=== PATIENT | male | born 1945 | race Caucasian/White ===

== ENCOUNTER 2019-04-13 09:30 | Outpatient (RCR) | payer MEDICARE, OTHER, SELFPAY ==
[2019-03-18 09:27] VITALS: BP 126/92; PULSE 91; RESP 20; TEMP 36.8; BMI 45.9
--- NOTE | 2019-03-18 09:39 | WC ---
PT STATES HE TAKES MULT MEDS, CAN'T REMEMBER NAMES OR DOSES. WILL BRING LIST AT NEXT VISIT.
--- NOTE | 2019-03-18 11:03 | PCM.WC.HP ---
(1) Stasis dermatitis of both legs Status: Acute Current Visit: Yes Code(s): I87.2 - Venous insufficiency (chronic) (peripheral) (2) Peripheral vascular occlusive disease Status: Acute Current Visit: Yes Code(s): I73.9 - Peripheral vascular disease, unspecified (3) Edema of both lower extremities due to peripheral venous insufficiency Status: Acute Current Visit: Yes Code(s): I87.2 - Venous insufficiency (chronic) (peripheral) (4) Atrial fibrillation and flutter Status: Acute Current Visit: Yes Code(s): I48.91 - Unspecified atrial fibrillation; I48.92 - Unspecified atrial flutter (5) Hx of penitentiary use of blood thinners Status: Acute Current Visit: Yes Code(s): Z92.29 - Personal history of other drug therapy (6) Obesity (BMI 30-39.9) Status: Acute Current Visit: Yes Code(s): E66.9 - Obesity, unspecified History of Present Illness Date of Service: 03/18/19 Chief Complaint: Follow-up on right lower leg round open ulcer History of Wound: 73-year-old white male obese with a history of ablation done to his right leg the right leg that has the punctuated ulcer. Patient has stasis dermatitis. States he is never smoked and never drank has been in the [employer] for over 30 years. 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 He has history of edema and water retention abdomen and face history of A. fib and is on Eliquis for this Past Medical History Past Medical History: A. fib stasis dermatitis peripheral vascular disease lower leg edema peripheral arterial occlusive disease Allergies/Adverse Reactions: Allergies Penicillins [PCN] Allergy (Verified 03/18/19 09:39) Other POLLEN Allergy (Uncoded 03/18/19 09:39) Other Lives: With Family Smoking Status: Never smoker Tobacco Use: Non-smoker Alcohol: None Drugs: None Review of Systems Constitutional: Denies: Chills, Fever Eyes: Denies: Blurred vision, Drainage, Pain HEENT: Denies: Difficulty Hearing, Difficulty Swallowing, Sore Throat, Visual Changes Cardiovascular: Denies: Chest Pain, Palpitations, Syncope Respiratory: Denies: Cough, Shortness of Breath Gastrointestinal: Denies: Abdominal Pain, Nausea, Vomiting Genitourinary: Denies: Dysuria, Frequency Musculoskeletal: Denies: Joint Pain, Muscle pain Skin: Denies: Jaundice, Rash Neurological: Denies: Balance problems, Change in Speech, Difficulty swallowing, Focal weakness Psychiatric: Denies: Anxiety, Depression Endocrine: Denies: Change in Body Habitus Hematologic/ Lymphatic: Denies: Adenopathy - Physical Exam Vital Signs Temp Pulse Resp BP 98.2 F 91 20 H 126/92 H 03/18/19 09:27 03/18/19 09:27 03/18/19 09:27 03/18/19 09:27 General: Oriented x3, Cooperative, Well developed HEENT: Atraumatic, PERRLA Oral: Moist Mucosa Neck: Supple, No JVD Lungs: Clear to auscultation, Normal air movement Cardiovascular: Regular rate, Regular Rhythm Abdomen: Bowel Sounds Present, Soft, Non Tender, No Hepato-splenomegaly Extremities: No clubbing, Diminished Peripheral Pulses, Edema Skin: Ulcer/ Wound - Punctuated ulcer left lower medial ankle, Rash Present Wound Measurements and Assessment WC - Nurse 1 - General Ulcer Measurement Start: 03/18/19 09:27 Freq: Status: Active Protocol: Activity Type Activity Date Activity User E-Sign Co-Sign Detail Recorded Client Recorded Date Recorded By Document 03/18/19 09:27 [facility] [id number] 03/18/19 09:36 [facility] 03/18/19 09:27 Wound Center Nurse 1 [Ulcer Assessment] #1- R LAT FUENTES -Combined with other wound No -Current Size (cm) - Length 1.1 -Current Size (cm) - Width 1 -Current Size (cm) - Depth 0.2 -Total Square Cm 1.1 -Date of Last Picture (Recall this 03/18/19 field) -Photo Taken Yes -Epithelialization None Present -Tunneling No -Undermining/Tunneling No -Circular Undermining No -Exudate Amt Small -Exudate Type Serous -Wound Margin Distinct, Outline Attached -Granulation Amt Medium (34-66%) -Granulation Quality Red -Slough/Fibrin Yes -Necrosis Amt Medium (34-66%) -Necrotic Tissue Type Adherent Slough -Texture (Torri-wound Skin Appearance) Assessed, Scarring -Moisture (Torri-wound Skin Appearance Assessed ) -Color (Torri-wound Skin Appearance) Hemosiderin Staining -Temperature (Torri-wound Skin No Abnormality Appearance) (Pt Warm) -Tenderness on Palpation (Torri-wound No Skin Appearance) -Ulcer Cleansing Rinsed/ Irrigated with Saline -Foul Odor after Cleansing No -Anesthetic Used 5% Lidocaine Gel [Edema Assessment] -Lower Limb Edema Present Yes -Right Calf (cm) 47.5 -Right Ankle (cm) 27.5 -Left Calf (cm) 46.7 -Left Ankle (cm) 28.5 WC - Nurse 2 - General Ulcer CM Notes Start: 03/18/19 09:27 Freq: Status: Active Protocol: Activity Type Activity Date Activity User E-Sign Co-Sign Detail Recorded Client Recorded Date Recorded By Document 03/18/19 09:50 MW [id number] 03/18/19 09:58 MW 03/18/19 09:50 Wound Center Nurse 2 [Procedure/Treatment] #1- R LAT FUENTES -Time 09:55 -Correct Patient Yes -Correct Side, Site, Position Yes -Correct Procedure Yes -Procedure Performed Yes -Type of Procedure Debridement -Clinical Debridement Subcutaneous -Post Debridement Size (cm) - Length 1.2 -Post Debridement Size (cm) - Width 1.2 -Post Debridement Size (cm) - Depth 0.2 -Total Square Cm 1.44 -Wound/Ulcer Outcome Not Healed -Ulcer Cleansing Rinsed/ Irrigated with Saline -Foul Odor after Cleansing No -Bioengineered Tissue No -Bleeding Controlled with Pressure -Offloading No -Treatment Response Procedure Tolerated Well [See Physician Procedure note for Specifics] Pain Scale: 0-10 Numeric [Pain] -Is Patient Pain Free? Yes Musculoskeletal: No Tenderness to Palpation of Joints or Extremities Lymphatic: No Cervical, Supraclavicular, or Inguinal Adenopathy Neurological: Cranial nerves II-XII grossly intact, Neuro grossly intact Psych/Mental Status: Normal Affect, Appropriate Debridement Note Post-Debridement Measurements/Treatment WC - Nurse 2 - General Ulcer CM Notes Start: 03/18/19 09:27 Freq: Status: Active Protocol: Activity Type Activity Date Activity User E-Sign Co-Sign Detail Recorded Client Recorded Date Recorded By Document 03/18/19 09:50 MW [id number] 03/18/19 09:58 MW 03/18/19 09:50 Wound Center Nurse 2 #1- R LAT FUENTES -Time 09:55 -Correct Patient Yes -Correct Side, Site, Position Yes -Correct Procedure Yes -Procedure Performed Yes -Type of Procedure Debridement -Clinical Debridement Subcutaneous -Post Debridement Size (cm) - Length 1.2 -Post Debridement Size (cm) - Width 1.2 -Post Debridement Size (cm) - Depth 0.2 -Total Square Cm 1.44 -Wound/Ulcer Outcome Not Healed -Ulcer Cleansing Rinsed/ Irrigated with Saline -Foul Odor after Cleansing No -Bioengineered Tissue No -Bleeding Controlled with Pressure -Offloading No -Treatment Response Procedure Tolerated Well Pain Scale: 0-10 Numeric Is Patient Pain Free? Yes Wound debrided: Ulcer left medial ankle Type of Debridement: Excisional debridement Anesthesia Used: 5% Lidocaine Gel Depth: Down to and including healthy tissue, in the subcutaneous layer Percentage of wound debrided: 100 Instrument Used: 5mm curette Tissue Removed: Slough and fibrin Severity: Fat Layer Exposed Amount of bleeding with debridement: Mild Bleeding Controlled with: Compression and gauze Patient tolerated procedure well Assessment/Plan Cultures obtained for anaerobic and aerobic bacteria Active Problems Stasis dermatitis of both legs (Acute) Peripheral vascular occlusive disease (Acute) Edema of both lower extremities due to peripheral venous insufficiency (Acute) Atrial fibrillation and flutter (Acute) Hx of penitentiary use of blood thinners (Acute) Obesity (BMI 30-39.9) (Acute) Assessment: Peripheral vascular occlusive disease. Nonhealing ulcer right medial fuentes. Atrial fib. Edema lower extremities. Morbid obesity Plan: Wash leg with antibacterial soap. Apply Aquacel silver to the wound bed base. Cover with Adaptic and dressing. Double layer Tubigrip's to bilateral lower legs. Follow-up in 1 week. Will call with culture results
--- NOTE | 2019-03-25 07:46 | VDLE_ITS ---
Reason For Study: BLE Edema RIGHT LEFT CFV is compressible, spontaneous, phasic, CFV is compressible, spontaneous, phasic, competent and demonstrates normal competent, and demonstrates normal augmentation. augmentation. FV is compressible, spontaneous, phasic, FV is compressible, spontaneous, phasic, competent and demonstrates normal competent and demonstrates normal augmentation. augmentation. POP V is compressible, spontaneous, phasic, POP V is compressible, spontaneous, phasic, competent and demonstrates normal competent and demonstrates normal augmentation. augmentation. T/P Trunk is compressible. T/P Trunk is compressible. PTV is compressible. PTV is compressible. RT PerV is compressible. LT PerV is compressible. SFJ is competent and measures 0.76 x 0.76 cm. SFJ is competent and measures 1.07 x 1.10 cm. Right GSV was previously ablated from groin Left GSV was previously ablated. to mid calf. SSV at junction is competent and measures GSV mid calf is INCOMPETENT for greater than 0.29 x 0.31 cm. 0.5 seconds and measures 0.27 x 0.28 cm. ASV mid calf is INCOMPETENT for greater than 0.5 seconds and measures 0.32 x 0.39 cm. SSV at junction is competent and measures 0.45 x 0.45 cm. Procedure Exam performed in department. A preliminary report was called and/or faxed to . Interpretation Summary Deep veins of the lower extremities are bilaterally patent and compressible segmentally. There is no evidence of deep vein thrombosis on either side. Valvular competence appears intact within the proximal deep venous systems bilaterally. Sapheno-femoral junctions are bilaterally competent . The right great saphenous vein is ablated from the right groin to the mid-calf. The right great saphenous vein is patent and incompetent at the mid-calf. The right accessory saphenous vein at the mid-calf is incompetent. The left great saphenous vein has been previously ablated. Small saphenous veins are patent and competent bilaterally. Ordering Physician: Huong Araujo Referring Physician: Saba Hyatt Performed By: Kasandra Arrieta RVT
--- NOTE | 2019-03-25 07:46 | ART_ITS ---
Reason For Study: PAD Procedure A bilateral lower extremity continuous wave Doppler with analog waveform analysis,segmental pressures,and ankle brachial indexes without exercise. Left Segmental Pressures Left brachial= 104mmHg. Left posterior tibial artery = 118mmHg. Left dorsalis pedis artery = 116mmHg. Left digit = 88 mmHg. The left dorsalis pedis waveforms are triphasic. The left posterior tibial artery waveforms are triphasic. Right Segmental Pressures Right brachial= 93mmHg. Right posterior tibial artery = 122mmHg. Right dorsalis pedis artery = 125mmHg. Right digit = 87 mmHg. The right dorsalis pedis waveforms are triphasic. The right posterior tibial artery waveforms are triphasic. Indices The right ankle brachial index by the dorsalis pedis is 1.20. The right ankle brachial index by the posterior tibial artery is 1.17. The right digital-brachial index is 0.84. The left ankle brachial index by the dorsalis pedis is 1.12. The left ankle brachial index by the posterior tibial artery is 1.13. The left digital-brachial index is 0.85. Interpretation Summary Triphasic Doppler waveforms are noted at ankle level bilaterally. Pulse-volume recordings appear satisfactory at all levels bilaterally. Resting ankle-brachial indices are normal bilaterally. Digital-brachial indices are normal bilaterally. There is no evidence of significant arterial occlusive disease in the lower extremities bilaterally. Ordering Physician: Huong Araujo Referring Physician: Saba Hyatt Performed By: Kasandra Arrieta RVT
[2019-03-25 10:00] VITALS: BP 96/68; PULSE 81; RESP 18; TEMP 36.9; BMI 45.9
--- NOTE | 2019-03-25 11:13 | PN.PCM_ITS ---
(1) Stasis dermatitis of both legs Status: Acute Current Visit: Yes Code(s): I87.2 - Venous insufficiency (chronic) (peripheral) (2) Peripheral vascular occlusive disease Status: Acute Current Visit: Yes Code(s): I73.9 - Peripheral vascular disease, unspecified (3) Edema of both lower extremities due to peripheral venous insufficiency Status: Acute Current Visit: Yes Code(s): I87.2 - Venous insufficiency (chronic) (peripheral) (4) Atrial fibrillation and flutter Status: Acute Current Visit: Yes Code(s): I48.91 - Unspecified atrial fibrillation; I48.92 - Unspecified atrial flutter (5) Hx of group home use of blood thinners Status: Acute Current Visit: Yes Code(s): Z92.29 - Personal history of other drug therapy (6) Obesity (BMI 30-39.9) Status: Acute Current Visit: Yes Code(s): E66.9 - Obesity, unspecified Type of Wound Date of Service: 03/25/19 Chief Complaint: Follow-up on right lower leg round open ulcer History of Wound: 73-year-old white male obese with a history of ablation done to his right leg the right leg that has the punctuated ulcer. Patient has stasis dermatitis. States he is never smoked and never drank has been in the [employer] for over 30 years. 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 He has history of edema and water retention abdomen and face history of A. fib and is on Eliquis for this Progress of Wound: The wound is smaller than it was last week, did show a growth of a bacteria will start on doxycycline twice a day. Is also approved for a skin substitute and applied number puraply #1 disc to right lower lateral fuentes. No sign of infection patient is tolerating treatment well. Using his compression stockings while also. Over his arterial brachial study and shows he does have an occlusion in the gastrocnemius muscle of his right lower calf we will refer to Dr. Mcmanus and in the meantime we will continue to heal his wound. - Physical Exam Vital Signs Temp Pulse Resp BP 98.4 F 81 18 96/68 03/25/19 10:00 03/25/19 10:00 03/25/19 10:00 03/25/19 10:00 General: Oriented x3, Cooperative, Well developed HEENT: Atraumatic, PERRLA Oral: Moist Mucosa Neck: Supple, No JVD Lungs: Clear to auscultation, Normal air movement Cardiovascular: Regular rate, Regular Rhythm Abdomen: Bowel Sounds Present, Soft, Non Tender, No Hepato-splenomegaly Extremities: No clubbing, No edema Skin: Ulcer/ Wound Wound Measurements and Assessment WC - Nurse 1 - General Ulcer Measurement Start: 03/18/19 09:27 Freq: Status: Active Protocol: Activity Type Activity Date Activity User E-Sign Co-Sign Detail Recorded Client Recorded Date Recorded By Document 03/25/19 10:00 [facility] [id number] 03/25/19 10:02 [facility] 03/25/19 10:00 Wound Center Nurse 1 [Ulcer Assessment] #1- R LAT FUENTES -Combined with other wound No -Current Size (cm) - Length 0.8 -Current Size (cm) - Width 0.7 -Current Size (cm) - Depth 0.2 -Total Square Cm 0.56 -Photo Taken No -Epithelialization None Present -Tunneling No -Undermining/Tunneling No -Circular Undermining No -Exudate Amt Small -Exudate Type Serous -Wound Margin Thickened & Rolled Under -Granulation Amt Medium (34-66%) -Granulation Quality Red -Slough/Fibrin Yes -Necrosis Amt Medium (34-66%) -Necrotic Tissue Type Adherent Slough -Texture (Torri-wound Skin Appearance) Assessed, Scarring -Moisture (Torri-wound Skin Appearance Assessed, ) Maceration,Dry/ Scaly -Color (Torri-wound Skin Appearance) Assessed, Hemosiderin Staining,Palor -Temperature (Torri-wound Skin No Abnormality Appearance) (Pt Warm) -Tenderness on Palpation (Torri-wound No Skin Appearance) -Ulcer Cleansing Rinsed/ Irrigated with Saline -Foul Odor after Cleansing No -Anesthetic Used 5% Lidocaine Gel [Edema Assessment] -Lower Limb Edema Present Yes -Right Calf (cm) 48.5 -Right Ankle (cm) 28.2 WC - Nurse 2 - General Ulcer CM Notes Start: 03/18/19 09:27 Freq: Status: Active Protocol: Activity Type Activity Date Activity User E-Sign Co-Sign Detail Recorded Client Recorded Date Recorded By Document 11/08/19 10:33 MW [id number] 03/25/19 10:43 MW 03/25/19 10:33 Wound Center Nurse 2 [Procedure/Treatment] #1- R LAT FUENTES -Time 10:34 -Correct Patient Yes -Correct Side, Site, Position Yes -Correct Procedure Yes -Procedure Performed Yes -Type of Procedure Debridement -Clinical Debridement Subcutaneous -Post Debridement Size (cm) - Length 0.8 -Post Debridement Size (cm) - Width 0.8 -Post Debridement Size (cm) - Depth 0.2 -Total Square Cm 0.64 -Wound/Ulcer Outcome Not Healed -Ulcer Cleansing Rinsed/ Irrigated with Saline -Foul Odor after Cleansing No -Bioengineered Tissue Yes -Type of bioengineered Tissue [id number] -Expiration Date 03/04/21 -Product Lot Number [id number] -Percent Used 100 -Bleeding Controlled with Pressure -Other C.HYDROGEL LOT #[id number] -Offloading No -Treatment Response Procedure Tolerated Well [See Physician Procedure note for Specifics] Pain Scale: 0-10 Numeric [Pain] -Is Patient Pain Free? Yes Musculoskeletal: No Tenderness to Palpation of Joints or Extremities Lymphatic: No Cervical, Supraclavicular, or Inguinal Adenopathy Neurological: Cranial nerves II-XII grossly intact, Neuro grossly intact Psych/Mental Status: Normal Affect, Appropriate Debridement Note Post-Debridement Measurements/Treatment WC - Nurse 2 - General Ulcer CM Notes Start: 03/18/19 09:27 Freq: Status: Active Protocol: Activity Type Activity Date Activity User E-Sign Co-Sign Detail Recorded Client Recorded Date Recorded By Document 03/18/19 09:50 MW [id number] 03/18/19 09:58 MW Document 03/25/19 10:33 MW [id number] 03/25/19 10:43 MW 03/18/19 03/25/19 09:50 10:33 Wound Center Nurse 2 #1- R LAT FUENTES -Time 09:55 10:34 -Correct Patient Yes Yes -Correct Side, Site, Position Yes Yes -Correct Procedure Yes Yes -Procedure Performed Yes Yes -Type of Procedure Debridement Debridement -Clinical Debridement Subcutaneous Subcutaneous -Post Debridement Size (cm) - Length 1.2 0.8 -Post Debridement Size (cm) - Width 1.2 0.8 -Post Debridement Size (cm) - Depth 0.2 0.2 -Total Square Cm 1.44 0.64 -Wound/Ulcer Outcome Not Healed Not Healed -Ulcer Cleansing Rinsed/ Rinsed/ Irrigated with Irrigated with Saline Saline -Foul Odor after Cleansing No No -Bioengineered Tissue No Yes -Type of bioengineered Tissue [id number] -Expiration Date 03/04/21 -Product Lot Number [id number] -Percent Used 100 -Bleeding Controlled with Pressure Pressure -Other C.HYDROGEL LOT #[id number] -Offloading No No -Treatment Response Procedure Procedure Tolerated Well Tolerated Well Pain Scale: 0-10 Numeric Is Patient Pain Free? Yes Yes Wound debrided: Right lateral fuentes Type of Debridement: Excisional debridement Depth: Down to and including healthy tissue Percentage of wound debrided: 100 Instrument Used: 5mm curette Tissue Removed: Fibrin Severity: Limited To Skin Breakdown Amount of bleeding with debridement: Mild Patient tolerated procedure well Assessment/Plan Active Problems Stasis dermatitis of both legs (Acute) Peripheral vascular occlusive disease (Acute) Edema of both lower extremities due to peripheral venous insufficiency (Acute) Atrial fibrillation and flutter (Acute) Hx of terminologist use of blood thinners (Acute) Obesity (BMI 30-39.9) (Acute) Assessment: Peripheral vascular occlusive disease. Nonhealing ulcer right medial fuentes. Atrial fib. Edema lower extremities. Morbid obesity Plan: Puraply #1 applied. Dressings to be kept intact and no showering for a week or cover before showering. Follow-up on Thursday. Start the doxycycline 100 mg p.o. twice daily for 10 days
[2019-03-30 10:16] VITALS: BP 107/57; PULSE 84; RESP 18; TEMP 36.2; BMI 45.9
--- NOTE | 2019-03-30 10:48 | PN.PCM_ITS ---
(1) Stasis dermatitis of both legs Status: Acute Current Visit: Yes Code(s): I87.2 - Venous insufficiency (chronic) (peripheral) (2) Peripheral vascular occlusive disease Status: Acute Current Visit: Yes Code(s): I73.9 - Peripheral vascular disease, unspecified (3) Edema of both lower extremities due to peripheral venous insufficiency Status: Acute Current Visit: Yes Code(s): I87.2 - Venous insufficiency (chronic) (peripheral) (4) Atrial fibrillation and flutter Status: Acute Current Visit: Yes Code(s): I48.91 - Unspecified atrial fibrillation; I48.92 - Unspecified atrial flutter (5) Hx of alf use of blood thinners Status: Acute Current Visit: Yes Code(s): Z92.29 - Personal history of other drug therapy (6) Obesity (BMI 30-39.9) Status: Acute Current Visit: Yes Code(s): E66.9 - Obesity, unspecified Type of Wound Date of Service: 03/30/19 Chief Complaint: Follow-up on right lower leg round open ulcer History of Wound: 73-year-old white male obese with a history of ablation done to his right leg the right leg that has the punctuated ulcer. Patient has stasis dermatitis. States he is never smoked and never drank has been in the [employer] for over 30 years. 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 He has history of edema and water retention abdomen and face history of A. fib and is on Eliquis for this Progress of Wound: The wound is smaller than it was last week, did show a growth of a bacteria will start on doxycycline twice a day. Is also approved for a skin substitute and applied number puraply #3 disc to right lower lateral fuentes. No sign of infection patient is tolerating treatment well. Using his compression stockings while also. Over his arterial brachial study and shows he does have an occlusion in the gastrocnemius muscle of his right lower calf we will refer to Dr. Mcmanus and in the meantime we will continue to heal his wound. - Physical Exam Vital Signs Temp Pulse Resp BP 97.1 F L 84 18 107/57 L 03/30/19 10:16 03/30/19 10:16 03/30/19 10:16 03/30/19 10:16 General: Oriented x3, Cooperative, Well developed HEENT: Atraumatic, PERRLA Oral: Moist Mucosa Neck: Supple, No JVD Lungs: Clear to auscultation, Normal air movement Cardiovascular: Regular rate, Regular Rhythm Abdomen: Bowel Sounds Present, Soft, Non Tender, No Hepato-splenomegaly Extremities: No clubbing, No edema Skin: Ulcer/ Wound - Right lateral fuentes Wound Measurements and Assessment WC - Nurse 1 - General Ulcer Measurement Start: 03/18/19 09:27 Freq: Status: Active Protocol: Activity Type Activity Date Activity User E-Sign Co-Sign Detail Recorded Client Recorded Date Recorded By Document 03/30/19 10:16 RB [id number] 03/30/19 10:18 RB 03/30/19 10:16 Wound Center Nurse 1 [Ulcer Assessment] #1- R LAT FUENTES -Combined with other wound No -Current Size (cm) - Length 0.8 -Current Size (cm) - Width 0.8 -Current Size (cm) - Depth 0.1 -Total Square Cm 0.64 -Tunneling No -Undermining/Tunneling No -Circular Undermining No -Exudate Amt Small -Exudate Type Serosanguineous -Wound Margin Distinct, Outline Attached -Granulation Amt Medium (34-66%) -Granulation Quality [place] -Slough/Fibrin Yes -Necrosis Amt Small (1-33%) -Necrotic Tissue Type Adherent Slough -Structure Exposed N/A -Texture (Torri-wound Skin Appearance) Assessed -Moisture (Torri-wound Skin Appearance Assessed ) -Color (Torri-wound Skin Appearance) Assessed, Hemosiderin Staining -Temperature (Torri-wound Skin No Abnormality Appearance) (Pt Warm) -Tenderness on Palpation (Torri-wound No Skin Appearance) -Ulcer Cleansing Wound Cleanser -Foul Odor after Cleansing No -Anesthetic Used 4% Lidocaine Solution [Edema Assessment] -Lower Limb Edema Present Yes -Right Calf (cm) 49.5 -Right Ankle (cm) 25.5 WC - Nurse 2 - General Ulcer CM Notes Start: 03/18/19 09:27 Freq: Status: Active Protocol: Activity Type Activity Date Activity User E-Sign Co-Sign Detail Recorded Client Recorded Date Recorded By Document 03/30/19 10:30 MW [id number] 03/30/19 10:36 MW 03/30/19 10:30 Wound Center Nurse 2 [Procedure/Treatment] #1- R LAT FUENTES -Time 10:35 -Correct Patient Yes -Correct Side, Site, Position Yes -Correct Procedure Yes -Procedure Performed Yes -Type of Procedure Debridement -Clinical Debridement Subcutaneous -Post Debridement Size (cm) - Length 0.7 -Post Debridement Size (cm) - Width 0.5 -Post Debridement Size (cm) - Depth 0.2 -Total Square Cm 0.35 -Wound/Ulcer Outcome Not Healed -Ulcer Cleansing Rinsed/ Irrigated with Saline -Foul Odor after Cleansing No -Bioengineered Tissue Yes -Type of bioengineered Tissue [id number] -Expiration Date 03/04/21 -Product Lot Number [id number] -Percent Used 100 -Bleeding Controlled with Pressure -Other C. HYDROGEL LOT #[id number] -Offloading No -Treatment Response Procedure Tolerated Well [See Physician Procedure note for Specifics] Pain Scale: 0-10 Numeric [Pain] -Is Patient Pain Free? Yes Musculoskeletal: No Tenderness to Palpation of Joints or Extremities Lymphatic: No Cervical, Supraclavicular, or Inguinal Adenopathy Neurological: Cranial nerves II-XII grossly intact, Neuro grossly intact Psych/Mental Status: Normal Affect, Appropriate Debridement Note Post-Debridement Measurements/Treatment WC - Nurse 2 - General Ulcer CM Notes Start: 03/18/19 09:27 Freq: Status: Active Protocol: Activity Type Activity Date Activity User E-Sign Co-Sign Detail Recorded Client Recorded Date Recorded By Document 03/18/19 09:50 MW [id number] 03/18/19 09:58 MW Document 03/25/19 10:33 MW [id number] 03/25/19 10:43 MW Document 03/30/19 10:30 MW [id number] 03/30/19 10:36 MW 03/18/19 03/25/19 03/30/19 09:50 10:33 10:30 Wound Center Nurse 2 #1- R LAT FUENTES -Time 09:55 10:34 10:35 -Correct Patient Yes Yes Yes -Correct Side, Site, Position Yes Yes Yes -Correct Procedure Yes Yes Yes -Procedure Performed Yes Yes Yes -Type of Procedure Debridement Debridement Debridement -Clinical Debridement Subcutaneous Subcutaneous Subcutaneous -Post Debridement Size (cm) - Length 1.2 0.8 0.7 -Post Debridement Size (cm) - Width 1.2 0.8 0.5 -Post Debridement Size (cm) - Depth 0.2 0.2 0.2 -Total Square Cm 1.44 0.64 0.35 -Wound/Ulcer Outcome Not Healed Not Healed Not Healed -Ulcer Cleansing Rinsed/ Rinsed/ Rinsed/ Irrigated with Irrigated with Irrigated with Saline Saline Saline -Foul Odor after Cleansing No No No -Bioengineered Tissue No Yes Yes -Type of bioengineered Tissue [id number] -Expiration Date 03/04/21 03/04/21 -Product Lot Number [id number] -Percent Used 100 100 -Bleeding Controlled with Pressure Pressure Pressure -Other C.HYDROGEL LOT C. HYDROGEL LOT #[id number] -Offloading No No No -Treatment Response Procedure Procedure Procedure Tolerated Well Tolerated Well Tolerated Well Pain Scale: 0-10 Numeric Is Patient Pain Free? Yes Yes Yes Wound debrided: Right lateral fuentes ulcer Type of Debridement: Excisional debridement Anesthesia Used: 5% Lidocaine Gel Depth: Down to and including healthy tissue, in the subcutaneous layer Percentage of wound debrided: 100 Instrument Used: 3mm curette Tissue Removed: Fibrin Severity: Limited To Skin Breakdown Amount of bleeding with debridement: None Bleeding Controlled with: Pressure Patient tolerated procedure well Assessment/Plan Active Problems Stasis dermatitis of both legs (Acute) Peripheral vascular occlusive disease (Acute) Edema of both lower extremities due to peripheral venous insufficiency (Acute) Atrial fibrillation and flutter (Acute) 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 Nonhealing ulcer right medial fuentes. Atrial fib. Edema lower extremities. Morbid obesity Plan: Puraply #3 applied. Dressings to be kept intact and no showering for a week or cover before showering. Follow-up 2 weeks. Start wearing CircAid's also. Start the doxycycline 100 mg p.o. twice daily for 10 days
[2019-04-13 09:35] VITALS: BP 104/55; PULSE 91; RESP 18; TEMP 37; BMI 45.9
--- NOTE | 2019-04-13 11:07 | PN.PCM_ITS ---
(1) Stasis dermatitis of both legs Status: Acute Current Visit: Yes Code(s): I87.2 - Venous insufficiency (chronic) (peripheral) (2) Peripheral vascular occlusive disease Status: Acute Current Visit: Yes Code(s): I73.9 - Peripheral vascular disease, unspecified (3) Edema of both lower extremities due to peripheral venous insufficiency Status: Acute Current Visit: Yes Code(s): I87.2 - Venous insufficiency (chronic) (peripheral) (4) Atrial fibrillation and flutter Status: Acute Current Visit: Yes Code(s): I48.91 - Unspecified atrial fibrillation; I48.92 - Unspecified atrial flutter (5) Hx of [facility] use of blood thinners Status: Acute Current Visit: Yes Code(s): Z92.29 - Personal history of other drug therapy (6) Obesity (BMI 30-39.9) Status: Acute Current Visit: Yes Code(s): E66.9 - Obesity, unspecified Type of Wound Date of Service: 04/13/19 Chief Complaint: Follow-up on right lower leg round open ulcer History of Wound: 73-year-old white male obese with a history of ablation done to his right leg the right leg that has the punctuated ulcer. Patient has stasis dermatitis. States he is never smoked and never drank has been in the [employer] for over 30 years. 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 He has history of edema and water retention abdomen and face history of A. fib and is on Eliquis for this Progress of Wound: Wound is completely scabbed over stable patient will be di scharged from the wound center - Physical Exam Vital Signs Temp Pulse Resp BP 98.6 F 91 18 104/55 L 04/13/19 09:35 04/13/19 09:35 04/13/19 09:35 04/13/19 09:35 General: Oriented x3, Cooperative, Well developed HEENT: Atraumatic, PERRLA Oral: Moist Mucosa Neck: Supple, No JVD Lungs: Clear to auscultation, Normal air movement Cardiovascular: Regular rate, Regular Rhythm Abdomen: Bowel Sounds Present, Soft, Non Tender, No Hepato-splenomegaly Extremities: No clubbing, No edema Wound Measurements and Assessment WC - Nurse 1 - General Ulcer Measurement Start: 03/18/19 09:27 Freq: Status: Active Protocol: Activity Type Activity Date Activity User E-Sign Co-Sign Detail Recorded Client Recorded Date Recorded By Document 04/13/19 09:35 CS [id number] 04/13/19 09:40 CS 04/13/19 09:35 Wound Center Nurse 1 [Ulcer Assessment] #1- R LAT FUENTES -Combined with other wound No -Current Size (cm) - Length 0.1 -Current Size (cm) - Width 0.1 -Current Size (cm) - Depth 0.1 -Total Square Cm 0.01 -Photo Taken No -Granulation Quality Hyper- granulation -Temperature (Torri-wound Skin No Abnormality Appearance) (Pt Warm) -Tenderness on Palpation (Torri-wound No Skin Appearance) -Ulcer Cleansing Rinsed/ Irrigated with Saline -Foul Odor after Cleansing No -Anesthetic Used 4% Lidocaine Solution [Edema Assessment] -Lower Limb Edema Present Yes -Right Calf (cm) 48 -Right Ankle (cm) 24.5 - Nurse 2 - General Ulcer CM Notes Start: 03/18/19 09:27 Freq: Status: Active Protocol: Activity Type Activity Date Activity User E-Sign Co-Sign Detail Recorded Client Recorded Date Recorded By Document 04/13/19 10:06 MW [id number] 04/13/19 10:12 MW 04/13/19 10:06 Wound Center Nurse 2 [Procedure/Treatment] #1- R LAT FUENTES -Time 10:06 -Correct Patient Yes -Correct Side, Site, Position Yes -Correct Procedure Yes -Procedure Performed No -Post Debridement Size (cm) - Length 0 -Post Debridement Size (cm) - Width 0 -Post Debridement Size (cm) - Depth 0 -Total Square Cm 0 -Wound/Ulcer Outcome Healed- Epithelialized -Ulcer Cleansing Rinsed/ Irrigated with Saline -Foul Odor after Cleansing No -Bioengineered Tissue No -Bleeding Controlled with Pressure -Offloading No -Treatment Response Procedure Tolerated Well [See Physician Procedure note for Specifics] Pain Scale: 0-10 Numeric [Pain] -Is Patient Pain Free? Yes Musculoskeletal: No Tenderness to Palpation of Joints or Extremities Lymphatic: No Cervical, Supraclavicular, or Inguinal Adenopathy Neurological: Cranial nerves II-XII grossly intact, Neuro grossly intact Psych/Mental Status: Normal Affect, Appropriate, Alert and oriented to time, place, person, mood and affect Debridement Note Post-Debridement Measurements/Treatment WC - Nurse 2 - General Ulcer CM Notes Start: 03/18/19 09:27 Freq: Status: Active Protocol: Activity Type Activity Date Activity User E-Sign Co-Sign Detail Recorded Client Recorded Date Recorded By Document 03/18/19 09:50 MW [id number] 03/18/19 09:58 MW Document 03/25/19 10:33 MW [id number] 03/25/19 10:43 MW Document 03/30/19 10:30 MW [id number] 03/30/19 10:36 MW Document 04/13/19 10:06 MW [id number] 04/13/19 10:12 MW 03/18/19 03/25/19 03/30/19 09:50 10:33 10:30 Wound Center Nurse 2 #1- R LAT FUENTES -Time 09:55 10:34 10:35 -Correct Patient Yes Yes Yes -Correct Side, Site, Position Yes Yes Yes -Correct Procedure Yes Yes Yes -Procedure Performed Yes Yes Yes -Type of Procedure Debridement Debridement Debridement -Clinical Debridement Subcutaneous Subcutaneous Subcutaneous -Post Debridement Size (cm) - Length 1.2 0.8 0.7 -Post Debridement Size (cm) - Width 1.2 0.8 0.5 -Post Debridement Size (cm) - Depth 0.2 0.2 0.2 -Total Square Cm 1.44 0.64 0.35 -Wound/Ulcer Outcome Not Healed Not Healed Not Healed -Ulcer Cleansing Rinsed/ Rinsed/ Rinsed/ Irrigated with Irrigated with Irrigated with Saline Saline Saline -Foul Odor after Cleansing No No No -Bioengineered Tissue No Yes Yes -Type of bioengineered Tissue [id number] -Expiration Date 03/04/21 03/04/21 -Product Lot Number [id number] -Percent Used 100 100 -Bleeding Controlled with Pressure Pressure Pressure -Other C.HYDROGEL LOT C. HYDROGEL LOT #[id number] #[id number] -Offloading No No No -Treatment Response Procedure Procedure Procedure Tolerated Well Tolerated Well Tolerated Well Pain Scale: 0-10 Numeric Is Patient Pain Free? Yes Yes Yes 04/13/19 10:06 Wound Center Nurse 2 #1- R LAT FUENTES -Time 10:06 -Correct Patient Yes -Correct Side, Site, Position Yes -Correct Procedure Yes -Procedure Performed No -Type of Procedure -Clinical Debridement -Post Debridement Size (cm) - Length 0 -Post Debridement Size (cm) - Width 0 -Post Debridement Size (cm) - Depth 0 -Total Square Cm 0 -Wound/Ulcer Outcome Healed- Epithelialized -Ulcer Cleansing Rinsed/ Irrigated with Saline -Foul Odor after Cleansing No -Bioengineered Tissue No -Type of bioengineered Tissue -Expiration Date -Product Lot Number -Percent Used -Bleeding Controlled with Pressure -Other -Offloading No -Treatment Response Procedure Tolerated Well Pain Scale: 0-10 Numeric Is Patient Pain Free? Yes No debridement was completed today Assessment/Plan Active Problems Stasis dermatitis of both legs (Acute) Peripheral vascular occlusive disease (Acute) Edema of both lower extremities due to peripheral venous insufficiency (Acute) Atrial fibrillation and flutter (Acute) Hx of [facility] use of blood thinners (Acute) Obesity (BMI 30-39.9) (Acute) Assessment: Peripheral vascular occlusive disease. Nonhealing ulcer right medial fuentes solved. Atrial fib. Edema lower extremities controlled. Morbid obesity Plan: Patient is to continue wearing CircAid's and will be follow-up with Dr. Mcmanus this April 20. Discharge from the wound center follow-up as needed
== END 2019-04-16 23:59 ==
LOC: WC 09:30
PROVIDERS: Family Provider Internal Medicine; PCP Internal Medicine; Referring Provider Nurse Practitioner; Visit Provider Nurse Practitioner
DX: I73.9 Peripheral vascular disease, unspecified (principal); R60.0 Localized edema; I87.2 Venous insufficiency (chronic) (peripheral); I48.91 Unspecified atrial fibrillation; E66.01 Morbid (severe) obesity due to excess calories; Z68.42 Body mass index [BMI] 45.0-49.9, adult; Z71.3 Dietary counseling and surveillance; Z79.01 Long term (current) use of anticoagulants; L97.322 Non-pressure chronic ulcer of left ankle with fat layer exposed; L97.811 Non-pressure chronic ulcer of other part of right lower leg limited to breakdown of skin
CPT/HCPCS: 11042; 15271; 87070; 87075; 87077; 87186; 87205; 93923; 93970; 99203; Q4196; G0463

== ENCOUNTER → 2022-05-29 | Outpatient (CLI) | payer MEDICARE, OTHER, SELFPAY ==
[2022-05-29 12:33] LABS: Albumin, Serum 3.6 g/dL (3.2-5.0); BUN 17 mg/dL (7-18); BUN/Creat Ratio 11.9 RATIO (10-20); Calcium,Total 9.2 mg/dL (8.5-10.1); Chloride 102 mmol/L (98-107); Creatinine, Serum 1.43 mg/dL (0.70-1.30); EST Glomerular Filtration Rate 51 mL/min (>60); Est Glom Filt Rate - Afr Amer 62 mL/min (>60); Glucose 126 mg/dL (74-106); Phosphorus 2.8 mg/dL (2.5-4.9); Potassium 4.2 mmol/L (3.5-5.1); Sodium Level 138 mmol/L (136-145)
== END | disposition home or self-care (01) ==
LOC: POLAB3 10:36
PROVIDERS: PCP Internal Medicine; Visit Provider Internal Medicine Nephrology
DX: N18.31 Chronic kidney disease, stage 3a (principal)
CPT/HCPCS: 36415; 80069

== ENCOUNTER → 2022-06-05 | Outpatient (CLI) | payer MEDICARE, OTHER, SELFPAY ==
--- NOTE | 2022-06-05 14:09 | US_ITS ---
STUDY: RENAL ULTRASOUND - COMPLETE REASON FOR EXAM: Male, 76 years old. CKD3 TECHNIQUE: Ultrasound evaluation of the kidneys was performed with real-time and static gandara-scale imaging. COMPARISON: None. FINDINGS: RIGHT KIDNEY: Normal location of the right kidney, which is normal in size. The right kidney measures 12.3 cm. There is a normal cortex of the right kidney. The renal cortex measures 1.4 cm. There is no right renal mass or cyst. Nonobstructing calculus measuring 5 x 3 x 8 mm. There is no right hydronephrosis. DISTAL RIGHT URETER: There is non-visualization of the distal right ureter. There is no demonstrated right ureterovesical junction calculus. There is a visualized right ureteral jet. LEFT KIDNEY: Normal location of the left kidney, which is normal in size. The left kidney measures 10.7 cm. There is a normal cortex of the left kidney. The renal cortex measures 1.1 cm. There is a questionable left renal nodule measuring 3.6 x 2.8 x 2.6 cm possibly representing dromedary hump.. Nonobstructing calculus measuring 5 x 3 x 3 mm. There is no left hydronephrosis. DISTAL LEFT URETER: There is non-visualization of the distal left ureter. There is no demonstrated left ureterovesical junction calculus. There is a visualized left ureteral jet. Diffusely increased cortical echoes bilaterally cystic with nonspecific renal parenchymal disease BLADDER: The distended urinary bladder has a volume of 168.9 ml. . There is a normal wall thickness of the distended urinary bladder. There is no demonstrated mass within the urinary bladder. There are no demonstrated bladder calculi. 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 Bilateral nonobstructing calculi Question left renal nodule versus dromedary hump. Recommend correlation with prior studies to assess for interval changes CT may be necessary for further assessment if this is new finding Electronically Signed: Maximino Brumfield MD at 21:46 EST ,
== END | disposition home or self-care (01) ==
LOC: US 14:08
PROVIDERS: PCP Internal Medicine; Visit Provider Internal Medicine Nephrology
DX: N18.31 Chronic kidney disease, stage 3a (principal)
CPT/HCPCS: 76770

== ENCOUNTER → 2022-09-22 | Outpatient (CLI) | payer MEDICARE, OTHER, SELFPAY ==
--- NOTE | 2022-09-22 14:40 | NEURO ---
NCS and/or EMG Patient Report Ordering Doctor: Min Stack Chi DATE OF SERVICE: 09/22/22 Indication: Approximately 7 months of bilateral hand numbness, tingling, and feeling swollen. Evaluate for entrapment neuropathy. Findings: Nerve conduction studies were performed in the right and left upper extremities. The right median motor study recording the abductor pollicis brevis showed a normal amplitude, prolonged distal latency and slowed conduction velocity. The right ulnar motor study recording the abductor digiti minimi showed a normal amplitude, normal distal latency and normal conduction velocity. No conduction block or focal slowing was present across the elbow. The right median sensory response recording digit two showed a borderline amplitude, prolonged latency and markedly slowed conduction velocity. The right ulnar sensory response recording digit five was absent. The right radial sensory response recording over the extensor snuff box showed a normal amplitude, latency and conduction velocity. The left median motor study recording the abductor pollicis brevis showed a normal amplitude, prolonged distal latency and slowed conduction velocity. The left ulnar motor study recording the abductor digiti minimi showed a normal amplitude, normal distal latency and normal conduction velocity. No conduction block or focal slowing was present across the elbow. The left median sensory response recording digit two showed a borderline amplitude, prolonged latency and markedly slowed conduction velocity. The left ulnar sensory response recording digit five was absent. The left radial sensory response recording over the extensor snuff box showed a normal amplitude, latency and conduction velocity. Needle EMG of the right upper extremity muscles was performed. No denervation was seen in any muscle. Motor units in the abductor policis brevis were slightly large with normal recruitment. All other motor unit morphology, activation and recruitment patterns were normal. Needle EMG of the left upper extremity muscles was performed. No denervation was seen in any muscle. Motor units in the triceps were large amplitude and long duration with normal recruitment. All other motor unit morphology, activation and recruitment patterns were normal. Impression: This is an abnormal and complex study. 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 The pathophysiology is predominantly demyelinating. In addition, there is electrophysiologic evidence suggestive of a superimposed chronic, mild, left C7 radiculopathy. Finally, the absent ulnar sensory responses are of unclear significance though they may represent non-localizing bilateral ulnar neuropathies. This could be evaluated further with neuromuscular ultrasound to better characterize and localize the pathology. Christopher [place], D.O. Multi Select Codes Neurology Neurology Interp Codes: 21340-47 Musc test done w/n test comp (interp) (Qty:2) and 69485-32 Nrv cndj test 9-10 studies (interp)
== END | disposition home or self-care (01) ==
LOC: PSN 13:25
PROVIDERS: PCP Nurse Practitioner Adult Health; Referring Provider Orthopaedic Surgery; Visit Provider Orthopaedic Surgery
DX: R20.2 Paresthesia of skin (principal); R20.0 Anesthesia of skin
CPT/HCPCS: 95886; 95911

== ENCOUNTER 2023-07-13 12:30 | Inpatient (IN) | payer MEDICARE, OTHER, SELFPAY ==
[2023-07-13 12:31] VITALS: BP 133/78; PULSE 94; RESP 12; TEMP 36.5; O2SAT 95; BMI 43.2
--- NOTE | 2023-07-13 12:40 | EKG12_ITS ---
Test Reason : LIGHTHEADED Blood Pressure : / mmHG Vent. Rate : 082 BPM Atrial Rate : 000 BPM P-R Int : 000 ms QRS Dur : 160 ms QT Int : 390 ms P-R-T Axes : 000 -38 008 degrees QTc Int : 455 ms Atrial fibrillation with premature ventricular or aberrantly conducted complexes Left axis deviation Right bundle branch block Abnormal ECG Confirmed by JENNY FARIAS, MICHAEL ([id number]), book or script editor TERESA DOOLEY ([id number]) on 07/20/2023 9:49:12 AM Referred By: Confirmed By:PAPITO ALVARADO MD
[2023-07-13 12:50] LABS: Absolute Lymphocyte Count 1.97 X10^3/uL (0.83-4.51); Absolute Neutrophil Count 4.9 X10^3/uL (2.0-7.7); Basophil# 0.05 X10^3/uL; Basophil% 0.6 % (0-1); Eosinophil# 0.27 X10^3/uL; Eosinophils% 3.4 % (0-5); Hematocrit 41.9 % (40-54); Hemoglobin 13.9 g/dL (13.0-16.5); Lymphocyte # 1.97 X10^3/ul (0.83-4.51); Lymphocyte % 24.7 % (19-41); Mean Corp Hgb Conc 33.2 g/dL (32-36); Mean Corpuscular Hgb 29.5 pg (27.0-32.0); Mean Platelet Vol. 9.4 fl (6.2-12.0); Monocyte# 0.74 X10^3/uL; Monocyte% 9.3 % (0-10); NRBC Flagged by Analyzer 0 % (0-5); Neutrophil # 4.92 X10^3/uL (2.7-7.7); Neutrophil % 61.7 % (47-70); Platelet Count 212 K/mm3 (150-450); RBC Distribution Width CV 12.9 % (11.6-14.6); RBC Distribution Width SD 41.8 fl (35.1-43.9); Red Blood Count 4.71 M/mm3 (4.6-6.2)
--- NOTE | 2023-07-13 12:51 | EDS_ITS ---
HPI <CLAIR Ortega - Last Filed: 07/13/23 14:15> History of Present Illness Chief Complaint: Shortness of Breath Narrative Narrative: 78-year-old male with PMH of HTN, asthma, pacemaker, A-fib on Eliquis states he took his morning meds around 9 AM. He was driving and started to feel lightheaded, his heart was pounding, and he felt short of breath. He had brief type chest pain. He pulled over and asked someone walking by to help him reach his inhaler. After using it he did feel better and more calm. He was brought in by EMS for evaluation. He states he feels much better now. He does note last night while using his CPAP he had to use his inhaler which is out of the ordinary. He has had no recent fever or URI symptoms. No exertional chest pain or shortness of breath. He has a masticator in [place] and thinks he had a normal chemical stress test within the last year. He does not smoke. PFSH <CLAIR Ortega - Last Filed: 07/13/23 14:15> PFSH Home Medications Telmisartan/Hydrochlorothiazid [Micardis Hct 80-25 Mg Tablet] 1 tab PO DAILY 03/22/19 [History Last Taken Unknown] albuterol sulfate 2.5 mg/3 mL (0.083 %) solution for nebulization 2.5 mg inhalation Q4H PRN PRN Asthma 03/22/19 [History Last Taken Unknown] albuterol sulfate 90 mcg/actuation aerosol inhaler 2 puff inhalation Q4H PRN PRN Asthma 03/22/19 [History Last Taken Unknown] apixaban 5 mg tablet 5 mg PO BID 03/22/19 [History Last Taken Unknown] diphenhydramine HCl 25 mg capsule 25 mg PO Q6H PRN PRN Allergies 03/22/19 [History Last Taken Unknown] epinephrine 0.3 mg/0.3 mL injection syringe 0.3 mg IJ Q6H PRN PRN Allergies 03/22/19 [History Last Taken Unknown] fluticasone 232 mcg-salmeterol 14 mcg/actuation breath activated powdr 2 puff IH BID 03/22/19 [History Last Taken Unknown] montelukast 10 mg tablet 10 mg PO QHS 03/22/19 [History Last Taken Unknown] oxybutynin chloride 5 mg tablet 5 mg PO BID 03/22/19 [History Last Taken Unknown] potassium chloride 10 mEq capsule,extended release 10 meq PO DAILY 03/22/19 [History Last Taken Unknown] simvastatin 40 mg tablet 40 mg PO QHS 03/22/19 [History Last Taken Unknown] spironolactone 25 mg-hydrochlorothiazide 25 mg tablet 50 mg PO DAILY 03/22/19 [History Last Taken Unknown] torsemide 5 mg tablet 5 mg PO BID 03/22/19 [History Last Taken Unknown] Allergy/AdvReac Type Severity Reaction Status Date / Time Penicillins [PCN] Allergy Other Verified 07/13/23 12:31 pollen extracts Allergy NEEDS Verified 07/13/23 12:31 FOLLOW-UP Social History Smoking Status: Never smoker ROS <CLAIR Ortega - Last Filed: 07/13/23 14:15> ROS ED ROS Narrative Constitutional: Negative for fever, chills, malaise. CVS: Positive for palpitations, chest pain. Negative for syncope. Respiratory: Positive for shortness of breath. No cough. GI: Negative for abdominal pain, nausea, vomiting. Neuro: Negative for headache. EXAM <CLAIR Ortega - Last Filed: 07/13/23 14:15> Physical Exam Narrative Exam Narrative: CONST: Patient sitting in no acute distress. EYES: Normal inspection. NECK: Normal inspection. RESP: No respiratory distress, CTAB. CVS: Regular rate and rhythm, no murmur, no gallop. ABD: Soft and nontender, no guarding or rebound, nondistended. SKIN: Color normal, no rash, warm, dry, intact. EXTREMITIES: Normal appearance, 2+ radial and PT pulses, trace ankle edema bilaterally. NEURO: Oriented x4. PSYCH: Normal affect. Const Vital Signs: 07/13/23 12:31 07/13/23 12:39 Temperature 97.7 F L Temperature Source Oral Pulse Rate 94 Respiratory Rate 12 Respiratory Effort Short of Breath Respiratory Depth Normal Respiratory Pattern Normal Blood Pressure 133/78 H Blood Pressure Mean 96 Pulse Ox 95 Oxygen Delivery Method Room Air Room Air <Dr. Walt Corcoran MD - Last Filed: 07/13/23 13:59> Physical Exam Const Vital Signs: 07/13/23 12:31 07/13/23 12:39 Temperature 97.7 F L Temperature Source Oral Pulse Rate 94 Respiratory Rate 12 Respiratory Effort Short of Breath Respiratory Depth Normal Respiratory Pattern Normal Blood Pressure 133/78 H Blood Pressure Mean 96 Pulse Ox 95 Oxygen Delivery Method Room Air Room Air [facility] <CLAIR Ortega - Last Filed: 07/13/23 14:15> [facility] Narrative Medical decision making narrative: Differential: Angina, ACS, cardiac arrhythmia, asthma 78-year-old male with PMH of A-fib on Eliquis, pacemaker had an episode of chest pain, dyspnea, palpitations while driving. He now feels back to normal. His vital signs are within normal limits. During my exam he has rate controlled A- fib at 81 bpm. 96% on room air. Exam is unremarkable. EKG shows A-fib with no acute ischemic changes but troponin is 140. He has no previous for comparison. CBC and BMP are unremarkable. CXR shows no acute process. Patient will need admitted for cardiac workup. I did not order heparin since he is on Eliquis and took a dose this morning. Case was discussed with the hospitalist for admission. Patient seen and evaluated with MIRIAM. I personally interviewed and examined the patient. I was involved in all aspects of patient's orders, interpretation of results, and treatment. Attending note: 78-year-old male an episode of shortness of breath and palpitations while driving. He has a history of known a fib for which she is on the blood thinner apixaban. Currently denies any significant chest pain recently. Well-appearing 78-year-old male. Currently symptom-free. Vital signs stable afebrile. Pulse ox 95% on room air no signs hypoxia. HEENT exam unremarkable. Neck nontender no JVD. Lungs clear to auscultation. Heart A-fib rate about 80 no murmur. Abdomen soft nontender. Moving all 4 extremities. Calves are no ntender without cords. Neurologically is awake and alert no focal motor deficits. Lab Data Attestation: I reviewed the patient's lab results. Labs: Laboratory Results - last 24 hr 07/13/23 12:40 WBC 8.0 RBC 4.71 Hgb 13.9 Hct 41.9 MCV 89.0 MCH 29.5 MCHC 33.2 RDW Std Deviation 41.8 RDW Coeff of Hema 12.9 Plt Count 212 MPV 9.4 Immature Gran % (Auto) 0.300 Neut % (Auto) 61.7 Lymph % (Auto) 24.7 [place] % (Auto) 9.3 Eos % (Auto) 3.4 Baso % (Auto) 0.6 Absolute Neuts (auto) 4.9 Absolute Lymphs (auto) 1.97 Nucleated RBC % 0 Sodium 137 Potassium 4.4 Chloride 104 Carbon Dioxide 28.0 Anion Gap 5 BUN 18 Creatinine 1.19 Estim Creat Clear Calc 71.42 Est GFR (MDRD) Af Amer 76 Est GFR (MDRD) Non-Af 63 BUN/Creatinine Ratio 15.1 Glucose 103 Calcium 9.2 Troponin I High Sens 140 H* Radiography Diagnostic Testing: Clinical Impression(s) from Imaging Studies Chest X-Ray 07/13/23 13:00 IMPRESSION: Degenerative changes, as described above. No demonstrated acute cardiopulmonary process. Electronically Signed: Bentley Henley MD at 14:06 EST Reading Location ID and State: [address] [place] [address] , Service support , Chest x-ray, portable, 2 view interpreted by myself. Shows normal cardiac silhouette. Normal lung karimi. Left-sided pacemaker defibrillator. EKG Initial EKG: Attestation: I personally reviewed and interpreted this EKG as follows: Interpretation: Sinus Rhythm and No Acute Injury Pattern Comments: A-fib with premature ventricular conducted complexes, 82 bpm Left axis deviation RBBB <Dr. Walt Corcoran MD - Last Filed: 07/13/23 13:59> [facility] MDM Narrative Medical decision making narrative: 78-year-old male with PMH of A-fib on Eliquis, pacemaker had an episode of chest pain, dyspnea, palpitations while driving. He now feels back to normal. His vital signs are within normal limits. During my exam he has rate controlled A- fib at 81 bpm. 96% on room air. Exam is unremarkable. EKG shows A-fib with no acute ischemic changes but troponin is 140. He has no previous for comparison. CBC and BMP are unremarkable. Patient will need admitted for NSTEMI/cardiac workup. I did not order heparin since he is on Eliquis and took a dose this morning. Patient seen and evaluated with MIRIAM. I personally interviewed and examined the patient. I was involved in all aspects of patient's orders, interpretation of results, and treatment. Attending note: 78-year-old male an episode of shortness of breath and palpitations while driving. He has a history of known a fib for which she is on the blood thinner apixaban. Currently denies any significant chest pain recently. Well-appearing 78-year-old male. Currently symptom-free. Vital signs stable afebrile. Pulse ox 95% on room air no signs hypoxia. HEENT exam unremarkable. Neck nontender no JVD. Lungs clear to auscultation. Heart A-fib rate about 80 no murmur. Abdomen soft nontender. Moving all 4 extremities. Calves are nontender without cords. Neurologically is awake and alert no focal motor deficits. Lab Data Lab results narrative: Chest x-ray chronic. Left-sided pacemaker. CBC white count 8. H&H 13.9 and 40. Platelets 212. Electrolytes show sodium 137 gap 5. Normal BUN 18 creatinine is 1.1. Troponin elevated at 141 no prior. Labs: Laboratory Results - last 24 hr 07/13/23 12:40 WBC 8.0 RBC 4.71 Hgb 13.9 Hct 41.9 MCV 89.0 MCH 29.5 MCHC 33.2 RDW Std Deviation 41.8 RDW Coeff of Hema 12.9 Plt Count 212 MPV 9.4 Immature Gran % (Auto) 0.300 Neut % (Auto) 61.7 Lymph % (Auto) 24.7 [place] % (Auto) 9.3 Eos % (Auto) 3.4 Baso % (Auto) 0.6 Absolute Neuts (auto) 4.9 Absolute Lymphs (auto) 1.97 Nucleated RBC % 0 Sodium 137 Potassium 4.4 Chloride 104 Carbon Dioxide 28.0 Anion Gap 5 BUN 18 Creatinine 1.19 Estim Creat Clear Calc 71.42 Est GFR (MDRD) Af Amer 76 Est GFR (MDRD) Non-Af 63 BUN/Creatinine Ratio 15.1 Glucose 103 Calcium 9.2 Troponin I High Sens 140 H* Radiography Chest X-Ray - ED: 1 View, Read by ED Physician, Heart, Lungs, Mediastinum, Bony Structures, No Acute Disease and Chronic Changes Diagnostic Testing: Clinical Impression(s) from Imaging Studies Chest X-Ray 07/13/23 13:00 IMPRESSION: Degenerative changes, as described above. No demonstrated acute cardiopulmonary process. Electronically Signed: Bentley Henley MD at 14:06 EST Reading Location ID and State: [facility] / [place] , Service support , Chest x-ray, portable, single view interpreted by myself. Shows normal cardiac silhouette. Normal lung karimi. Left-sided pacemaker defibrillator. Discharge Plan Dx/Rx/DC Orders Clinical Impression: Elevated troponin, Heart palpitations, Chronic anticoagulation, Chronic a-fib, Chest pain Disposition Disposition: Acute Care Hospital [facility]
--- NOTE | 2023-07-13 13:00 | RAD_ITS ---
STUDY: X-RAY CHEST REASON FOR EXAM: Male, 78 years old. dyspnea TECHNIQUE: PA and lateral views of the chest. COMPARISON: None. FINDINGS: Stable left chest cardiac device and single lead. The lungs are clear and expanded. There is no demonstrated pleural abnormality. Normal size heart. Normal mediastinum and radha. Normal visualized pulmonary arteries. Normal visualized aortic arch and descending thoracic aorta. There are diffuse degenerative changes of the visualized thoracic spine. There is degenerative osteoarthritis of the bilateral shoulders. There is no demonstrated abnormality of the visualized soft tissue structures of the upper abdomen. RAD/Chest PA and Lateral IMPRESSION: Degenerative changes, as described above. No demonstrated acute cardiopulmonary process. Electronically Signed: Bentley Henley MD at 14:06 EST ,
--- NOTE | 2023-07-13 13:02 | ED.RN ---
NO OLD EKGS.
[2023-07-13 13:13] LABS: Anion Gap 5 (5-15); BUN 18 mg/dL (7-18); BUN/Creat Ratio 15.1 RATIO (10-20); Calcium,Total 9.2 mg/dL (8.5-10.1); Chloride 104 mmol/L (98-107); Creatinine, Serum 1.19 mg/dL (0.70-1.30); EST Glomerular Filtration Rate 63 mL/min (>60); Est Glom Filt Rate - Afr Amer 76 mL/min (>60); Estimated Creatinine Clearance 71.42 ml/min; Glucose 103 mg/dL (74-106); Potassium 4.4 mmol/L (3.5-5.1); Sodium Level 137 mmol/L (136-145); Troponin-I HS 140 pg/mL (3.0-78.0)
--- NOTE | 2023-07-13 13:59 | NURSING ---
PCU OBS BEN BRYANT
--- NOTE | 2023-07-13 14:11 | PCM.HP.STD ---
HPI - General General Date of Admission: 07/13/23 Date of Service: 07/13/23 Chief Complaint: palpitations HPI Narrative ARISTIDES RYDER, is a 78 M who presents with palpitations. Driving, he experienced patient mated diaphoresis and lightheadedness. He had to lung puller and symptoms eventually did resolve. Overall, the symptoms lasted about 20 minutes. Patient does have a known history of atrial fibrillation and does have a pacemaker but has never had any symptoms like this in the past. He presented emergency room and his workup here was unremarkable with exception of troponin elevation of 140. Patient denies any chest pain currently or during any of his symptoms. Patient did have a pacemaker April. COUNT INCLUDES THE [facility] Medical History (Updated 07/13/23 @ 14:[address] 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 Obesity (BMI 30-39.9) Peripheral vascular occlusive disease Stasis dermatitis of both legs Home Medications Telmisartan/Hydrochlorothiazid [Micardis Hct 80-25 Mg Tablet] 1 tab PO DAILY 03/22/19 [History Last Taken Unknown] albuterol sulfate 2.5 mg/3 mL (0.083 %) solution for nebulization 2.5 mg inhalation Q4H PRN PRN Asthma 03/22/19 [History Last Taken Unknown] albuterol sulfate 90 mcg/actuation aerosol inhaler 2 puff inhalation Q4H PRN PRN Asthma 03/22/19 [History Last Taken Unknown] apixaban 5 mg tablet 5 mg PO BID 03/22/19 [History Last Taken Unknown] diphenhydramine HCl 25 mg capsule 25 mg PO Q6H PRN PRN Allergies 03/22/19 [History Last Taken Unknown] epinephrine 0.3 mg/0.3 mL injection syringe 0.3 mg IJ Q6H PRN PRN Allergies 03/22/19 [History Last Taken Unknown] fluticasone 232 mcg-salmeterol 14 mcg/actuation breath activated powdr 2 puff IH BID 03/22/19 [History Last Taken Unknown] montelukast 10 mg tablet 10 mg PO QHS 03/22/19 [History Last Taken Unknown] oxybutynin chloride 5 mg tablet 5 mg PO BID 03/22/19 [History Last Taken Unknown] potassium chloride 10 mEq capsule,extended release 10 meq PO DAILY 03/22/19 [History Last Taken Unknown] simvastatin 40 mg tablet 40 mg PO QHS 03/22/19 [History Last Taken Unknown] spironolactone 25 mg-hydrochlorothiazide 25 mg tablet 50 mg PO DAILY 03/22/19 [History Last Taken Unknown] torsemide 5 mg tablet 5 mg PO BID 03/22/19 [History Last Taken Unknown] Allergy/AdvReac Type Severity Reaction Status Date / Time Penicillins [PCN] Allergy Other Verified 07/13/23 12:31 pollen extracts Allergy NEEDS Verified 07/13/23 12:31 FOLLOW-UP Family History (Updated 07/13/23 @ 14:[address] John Peters DO) Other Heart disease Social History (Updated 07/13/23 @ 14:[address] John Peters DO) current occupational status: retired current occupation: retired [employer] Smoking Status: Never smoker substance use type: does not use ROS ROS Narrative All review of systems were negative except as mentioned above in the history of present illness and the other review of systems. Vital Signs Vital Signs Vital Signs: 07/13/23 12:31 07/13/23 12:39 Temperature 36.5 C L Temperature Source Oral Pulse Rate 94 Respiratory Rate 12 Respiratory Effort Short of Breath Respiratory Depth Normal Respiratory Pattern Normal Blood Pressure 133/78 H Blood Pressure Mean 96 Pulse Ox 95 Oxygen Delivery Method Room Air Room Air Weight Weight: 133 kg Body Mass Index (BMI) 43.2 Physical Exam Const alert and no apparent distress HEENT normocephalic and hearing grossly normal bilaterally Eyes PERRL Neck no lymphadenopathy and supple Resp normal respiratory effort, no retractions, no use of accessory muscles and clear to auscultation bilaterally Cardio regular rate, regular rhythm, S1 normal heart sound and S2 normal heart sound GI normal to inspection, nondistended, normoactive bowel sounds, soft to palpation, non-tender and non-distended Extremity normal to inspection and full ROM Extremity Narrative: Bilateral lower extremity edema. Compression stockings on. Neuro moves all extremities Sensorium / Orientation: awake and alert Psych affect normal Results Lab / Micro Data Attestation: I reviewed the patient's lab results. 07/13/23 12:40 07/13/23 12:40 Labs: Laboratory Results - last 24 hr 07/13/23 12:40: WBC 8.0, RBC 4.71, Hgb 13.9, Hct 41.9, MCV 89.0, MCH 29.5, MCHC 33.2, RDW Std Deviation 41.8, RDW Coeff of Hema 12.9, Plt Count 212, MPV 9.4, Immature Gran % (Auto) 0.300, Neut % (Auto) 61.7, Lymph % (Auto) 24.7, [place] % (Auto) 9.3, Eos % (Auto) 3.4, Baso % (Auto) 0.6, Absolute Neuts (auto) 4.9, Absolute Lymphs (auto) 1.97, Nucleated RBC % 0, Sodium 137, Potassium 4.4, Chloride 104, Carbon Dioxide 28.0, Anion Gap 5, BUN 18, Creatinine 1.19, Estim Creat Clear Calc 71.42, Est GFR (MDRD) Af Amer 76, Est GFR (MDRD) Non-Af 63, BUN/Creatinine Ratio 15.1, Glucose 103, Calcium 9.2, Troponin I High Sens 140 H* EKG Initial EKG: Prior EKG tracings: available for review EKG Rhythm Intrepretation: Atrial Fibrillation (Right bundle branch block.) Imaging Chest x-ray personally reviewed and showed no acute infiltrates or pulmonary vascular congestion. Radiology Impression Chest X-Ray 07/13/23 13:00 IMPRESSION: Degenerative changes, as described above. No demonstrated acute cardiopulmonary process. Electronically Signed: Bentley Henley MD at 14:06 EST Reading Location ID and State: [address] [place] [address] , Service support , Assessment & Plan Assessment/Plan (1) NSTEMI, initial episode of care: PLAN: Plan NSTEMI Patient was not having overt chest pain but was having palpitations. Unclear if patient was having atrial fibrillation with RVR or some other tachyarrhythmia. I feel this was likely the etiology of his elevated troponins. Continue to cycle troponins Check echo. Interrogate pacemaker Depending on course, may need to consider consulting cardiology. Chronic conditions Atrial fibrillation: Patient had pacemaker placed April 24, 2023. Anticoagulated with apixaban. Chronic heart failure with preserved ejection fraction: Previous ports stated that the EF was 51%. Continue with torsemide and spironolactone. Continue with ARB. Morbid obesity: BMI of 43.3 kg/m?. Complicates care and recovery. VTE prophylaxis: Not indicated as patient is already anticoagulated. CODE STATUS: Addressed with patient. Patient wished to be full code. Charges/Coding Visit Charges Inpatient E&M: 08086 Init Hosp L3
[2023-07-13 14:24] VITALS: BP 109/78; PULSE 78; PULSE 80; RESP 15; TEMP 36.4; O2SAT 98
--- NOTE | 2023-07-13 14:44 | ECHOCS_ITS ---
Reason For Study: Palpitations Procedure This was a 2D Doppler, Color Flow transthoracic echocardiogram. The study was technically difficult. Contrast injection was performed. Exam performed portable in patient room. Left Ventricle Normal LV size. The estimated ejection fraction is 55 %. No evidence for diastolic dysfunction. No regional wall motion abnormalities noted. Right Ventricle Normal RV size. ICD or pacer leads identified within the right ventricle. Normal systolic function. Atria The left and right atria are normal. ICD or pacer leads identified within the right atrium. No doppler evidence for ASD. Mitral Valve There is no mitral valve stenosis. No mitral valve insufficiency. Tricuspid Valve There is no tricuspid stenosis. Mild tricuspid valve insufficiency. Pulmonary artery systolic pressure is 35 mmHg. Aortic Valve Trisinus/trileaflet aortic valve. There is no aortic stenosis. No aortic valve insufficiency. Pulmonic Valve There is no pulmonic valvular stenosis. No pulmonic valve insufficiency. Great Vessels Normal aortic root. Pericardium/Pleural No pericardial effusion. Medication Diluted definity 2.5ml given slow IV push to enhance endocardial definition. MMode/2D Measurements & Calculations LVIDd: 5.9 cm IVSd: 1.1 cm Ao root diam: 3.8 cm LVIDs: 4.8 cm LVPWd: 1.1 cm LA dimension: 4.6 cm RVDd: 4.5 cm FS: 18.7 % LAV(MOD-bp): 69.7 ml LA A4 area: 23.7 cm2 RA A4 area: 30.4 cm2 LAV(MOD-bp) Indexed: 29.2 ml/m2 LAV(MOD-sp2): 67.8 ml LAV(MOD-sp4): 68.3 ml TAPSE: 2.3 cm Doppler Measurements & Calculations MV V2 max: 173.8 cm/sec Ao V2 max: 168.3 cm/sec LV V1 max: 121.5 cm/sec MV max P.3 mmHg Ao max P.4 mmHg LV V1 max P.9 mmHg MV V2 mean: 73.0 cm/sec Ao V2 mean: 120.1 cm/sec LV V1 mean P.2 mmHg MV mean P.1 mmHg Ao mean P.6 mmHg LV V1 mean: 98.5 cm/sec MV V2 VTI: 47.3 cm Ao V2 VTI: 36.0 cm LV V1 VTI: 26.1 cm AV (velocity ratio): 0.73 PA V2 max: 107.1 cm/sec TR max chucky: 272.7 cm/sec PA V2 mean: 79.5 cm/sec TR max P.7 mmHg ECHO/Echo Complete W/ Contrast Interpretation Summary The estimated ejection fraction is 55 %. No evidence for diastolic dysfunction. Ordering Physician: John Peters Performed By: Matthew Mackenzie RCS
[2023-07-13 14:46] VITALS: BMI 41.8
[2023-07-13 15:00] VITALS: BP 115/67; PULSE 68; RESP 16; TEMP 36.4; O2SAT 100
--- NOTE | 2023-07-13 15:00 | EKG12_ITS ---
Test Reason : Blood Pressure : / mmHG Vent. Rate : 080 BPM Atrial Rate : 000 BPM P-R Int : 000 ms QRS Dur : 160 ms QT Int : 388 ms P-R-T Axes : 000 -41 011 degrees QTc Int : 447 ms Atrial fibrillation with occasional ventricular-paced complexes Left axis deviation Right bundle branch block Cannot rule out Inferior infarct , age undetermined Abnormal ECG When compared with ECG of 13-JUL-2023 12:51, MANUAL COMPARISON REQUIRED, DATA IS UNCONFIRMED Confirmed by JENNY FARIAS, MICHAEL ([id number]), newspaper or periodical editor TITA ELLIOTT ([id number]) on 07/20/2023 2:13:03 PM Referred By: MANNY Confirmed By:PAPITO ALVARADO MD
[2023-07-13 16:08] LABS: Troponin-I HS 132 pg/mL (3.0-78.0)
[2023-07-13 19:02] LABS: Troponin-I HS 129 pg/mL (3.0-78.0)
[2023-07-13 19:09] VITALS: PULSE 92; RESP 12
[2023-07-13] MEDS: Budesonide Respules 0.5 MG/2 ML AMPUL.NEB. INHALATION (19:09)
[2023-07-13] MEDS: Albuterol 2.5 MG/3 ML VIAL.NEB. INHALATION (19:09)
[2023-07-13] MEDS: Acetaminophen 325 MG Tablet 650 MG PO (20:56)
[2023-07-13] MEDS: APIXABAN 5 MG TABLET PO (20:57)
[2023-07-13] MEDS: Atorvastatin Calcium 20 MG Tablet PO (20:57)
[2023-07-13] MEDS: Montelukast 10 MG Tablet PO (20:57)
[2023-07-13] MEDS: Oxybutynin 5 MG Tablet PO (20:57)
[2023-07-13 21:00] VITALS: BP 97/59; PULSE 81; RESP 18; TEMP 36.6; O2SAT 97
[2023-07-14] VITALS (8 sets, daily range): BP systolic 107–123; BP diastolic 61–71; PULSE 80–90; RESP 14–18; TEMP 36.5–36.8; O2SAT 94–99; BMI 41.8; BMI 41.3
[2023-07-14 06:29] LABS: Anion Gap 2 (5-15); BUN 15 mg/dL (7-18); BUN/Creat Ratio 12.3 RATIO (10-20); Calcium,Total 9.1 mg/dL (8.5-10.1); Chloride 106 mmol/L (98-107); Creatinine, Serum 1.22 mg/dL (0.70-1.30); EST Glomerular Filtration Rate 61 mL/min (>60); Est Glom Filt Rate - Afr Amer 74 mL/min (>60); Glucose 117 mg/dL (74-106); Potassium 4.7 mmol/L (3.5-5.1); Sodium Level 139 mmol/L (136-145)
[2023-07-14] MEDS: Budesonide Respules 0.5 MG/2 ML AMPUL.NEB. INHALATION ×2 (07:11→19:14)
[2023-07-14] MEDS: Albuterol 2.5 MG/3 ML VIAL.NEB. INHALATION ×3 (07:11→19:14)
--- NOTE | 2023-07-14 08:15 | PN.HOSP_ITS ---
Reason for Visit Reason for Visit: Diagnoses Non-ST elevation (NSTEMI) myocardial infarction (07/13/23) Subjective Subjective No events overnight. Feeling well. Objective Data Objective Data Vital Signs: Vital Signs Temp Pulse Resp BP Pulse Ox O2 Del Method 36.6 C 90 18 123/68 H 96 Room Air 07/14/23 02:51 07/14/23 07:11 07/14/23 07:11 07/14/23 02:51 07/14/23 02:51 07/14/23 02:56 Oxygen Delivery Method Room Air Weight: 127.006 kg Body Mass Index (BMI) 41.3 Intake & Output: Intake and Output for Last 24 Hours 07/12/23 07/13/23 07/14/23 23:59 23:59 23:59 Intake Total 480 / 480 Balance 480 / 480 Lab / Micro Data 07/13/23 12:40 07/14/23 05:48 Labs: Laboratory Results - last 24 hr 07/13/23 12:40: WBC 8.0, RBC 4.71, Hgb 13.9, Hct 41.9, MCV 89.0, MCH 29.5, MCHC 33.2, RDW Std Deviation 41.8, RDW Coeff of Hema 12.9, Plt Count 212, MPV 9.4, Immature Gran % (Auto) 0.300, Neut % (Auto) 61.7, Lymph % (Auto) 24.7, [place] % (Auto) 9.3, Eos % (Auto) 3.4, Baso % (Auto) 0.6, Absolute Neuts (auto) 4.9, Absolute Lymphs (auto) 1.97, Nucleated RBC % 0, Sodium 137, Potassium 4.4, Chloride 104, Carbon Dioxide 28.0, Anion Gap 5, BUN 18, Creatinine 1.19, Estim Creat Clear Calc 71.42, Est GFR (MDRD) Af Amer 76, Est GFR (MDRD) Non-Af 63, BUN/Creatinine Ratio 15.1, Glucose 103, Calcium 9.2, Troponin I High Sens 140 H* 07/13/23 15:30: Troponin I High Sens 132 H* 07/13/23 18:36: Troponin I High Sens 129 H* 07/14/23 05:48: Sodium 139, Potassium 4.7, Chloride 106, Carbon Dioxide 31.0, Anion Gap 2 L, BUN 15, Creatinine 1.22, Estim Creat Clear Calc 68.30, Est GFR (MDRD) Af Amer 74, Est GFR (MDRD) Non-Af 61, BUN/Creatinine Ratio 12.3, Glucose 117 H, Calcium 9.1 Radiography Diagnostic Testing: Radiology Impression Chest X-Ray 07/13/23 13:00 IMPRESSION: Degenerative changes, as described above. No demonstrated acute cardiopulmonary process. Electronically Signed: Bentley Henley MD at 14:06 EST Reading Location ID and State: [facility] / [place] , Service support , Physical Exam Const alert and no apparent distress HEENT head/scalp atraumatic and moist oral mucous membranes Resp normal respiratory effort, no retractions, no use of accessory muscles and clear to auscultation bilaterally Cardio regular rate, regular rhythm, S1 normal heart sound and S2 normal heart sound GI normal to inspection, nondistended, normoactive bowel sounds, soft to palpation and non-tender Assessment & Plan Assessment/Plan (1) NSTEMI, initial episode of care: PLAN: Plan NSTEMI * Suspect type II event from VT. Troponins have been trending down. * Continue to cycle troponins * Check echo. VT * Patient irrigation did show ventricular tachycardia that did not specify cb gth of the events from . On telemetry, patient is is a paced but having frequent not sustained ventricular tachycardia. * At reached out to speak with patient's EP doctor, Dr. Napier, and spoke with him on the phone. He recommends starting diltiazem 120 mg daily. Patient previous has not tolerated beta-blockers and does have history of heart block which she subsequently has a pacemaker placed. Will give the patient 100 mg of Cardizem CD and observe him overnight. * Plans for the patient to follow-up with Dr. Napier as outp Chronic conditions * Atrial fibrillation: Patient had pacemaker placed April 24, 2023. Anticoagulated with apixaban. * Chronic heart failure with preserved ejection fraction: Previous ports stated that the EF was 51%. Continue with torsemide and spironolactone. Continue with ARB. * Morbid obesity: BMI of 43.3 kg/m?. Complicates care and recovery. VTE prophylaxis: Not indicated as patient is already anticoagulated. CODE STATUS: Addressed with patient. Patient wished to be full code. Disposition: Will monitor the patient overnight with a change to the medic ations. Patient has extensive history of cardiac arrhythmias requiring pacemaker due to history of atrial fibrillation and heart block. Patient is high risk to for further complications without proper monitoring therefore, patient be monitored overnight to ensure that he remains stable. Charges/Coding Visit Charges Inpatient E&M: 03793 Subs Hosp L3
[2023-07-14] MEDS: Acetaminophen 325 MG Tablet 650 MG PO (08:50)
[2023-07-14] MEDS: Potassium Chloride Oral Tablet 10 MEQ PO (08:50)
[2023-07-14] MEDS: Oxybutynin 5 MG Tablet PO ×2 (08:51→20:36)
[2023-07-14] MEDS: Spironolactone 50 MG Tablet PO (08:51)
[2023-07-14] MEDS: Losartan Potassium 100 MG Tablet PO (08:51)
[2023-07-14] MEDS: hydroCHLOROthiazide 25 MG Tablet PO (08:51)
[2023-07-14] MEDS: APIXABAN 5 MG TABLET PO ×2 (08:52→20:36)
--- NOTE | 2023-07-14 09:50 | CASEMGMT ---
RN SHERIF Face to Face with patient for initial transition planning/care coordination assessment. RN CM introduced self and role at [facility]. Patient sitting in chair, alert and oriented. Patient willing to participate in assessment and is able to answer all questions appropriately. Care providers, pharmacy, and demographics verified. Patient wishes to discharge home, denies need for home health at this time. Patient states he has no further needs or concerns at this time. CM to follow for discharge planning needs that may arise. PCP: Jayla INSERTER OPERATOR Specialists: Glenn nurse practitioner home assessments; [facility] Florencia Drawer Fitter Preferred Pharmacy: [facility] Insurance: [employer] Prescription Benefit: yes Living Will/HPOA: yes, daughter Khadra Rosenthal LNOK: daughter Living Arrangements: Patient lives with daughter in a split level home with 6 steps and railing between levels. Patient is independent at home and able to ambulate stairs Transportation: self, daughter DME/HHC: Patient has raised toilet, cane, walker, scooter, cpap, and pulse ox at home. No previous HHC or SNF Disposition Plan: Patient to discharge home with family support and follow-up plans in place. Kasandra FLORES, RN, CM
[2023-07-14] MEDS: dilTIAZem CD 120 MG Capsule PO (11:26)
--- NOTE | 2023-07-14 14:50 | CHAPLAIN ---
Type of Pastoral Visit _x__ Initial Visit ___ Follow-up Visit ___ On-call Visit ___ General Patient Visit ___ Spiritual Assessment ___ Family Conference ___ Bereavement ___ Rapid Response ___ Code Blue ___ Other (describe below) Pastoral Care Referral From _x__ Patient ___ Family ___ Nurse ___ Physician ___ Pet Counselor ___ Motion Study Technician ___ Other (describe below) Sacrament/Intervention _x__ Active listening ___ Anointing ___ Evangelical ___ Bereavement ___ Communion _x__ Hannah exploration ___ _x__ Life review _x__ Prayer ___ Reconciliation ___ Sacrament of Sick _x__ Supportive presence ___ Wedding ___ Other (describe below) Pastoral Comments patient tells the story of his episode yesterday and thus the reason for coming to hospital; pt has had recent heart issues but previously has enjoyed good health; pt was in the for 30 years and states how he misses the people that he served and work with in the [employer]; pt lives near family now and enjoys his life; pt left his [employer] many years ago but makes statements about the possibility of reconnecting at some point; pt welcomes presence of someone to talk with about his life and his needs; pt welcomes prayer for support
--- NOTE | 2023-07-14 17:06 | CASEMGMT ---
Social Work SW introduced self and role to patient. SW inquired about advance directives. Pt reports he believes he has complete some POA with his trust. Pt does not believe he has completed a living will. By patient's descriptions, patient likely does not have a HCPOA and living will. Pt is requesting to complete documentation now. SW faiclitated patient completing his HCPOA and living will. Pt names daughter Khadra Rosenthal as his HCPOA. Pt reports she is his only child and resides with him. Advance Directives completed and original/copies provided to patient and a copy was placed on patient's chart. Estrellita Alford SHERIFFS OFFICER, SUPERVISOR GRIPS
[2023-07-14] MEDS: Atorvastatin Calcium 20 MG Tablet PO (20:36)
[2023-07-14] MEDS: Montelukast 10 MG Tablet PO (20:36)
--- NOTE | 2023-07-14 20:54 | CPS ---
Patient has home unit in room. Patient does not need assistance tonight. CPAP set up and ready to use.
[2023-07-15] MEDS: Acetaminophen 325 MG Tablet 650 MG PO (00:37)
[2023-07-15 02:50] VITALS: BP 112/68; PULSE 80; RESP 18; TEMP 36.5; O2SAT 98
[2023-07-15 04:39] VITALS: BMI 41.6
[2023-07-15 06:52] VITALS: PULSE 80; RESP 17
[2023-07-15] MEDS: Albuterol 2.5 MG/3 ML VIAL.NEB. INHALATION (06:52)
[2023-07-15] MEDS: Budesonide Respules 0.5 MG/2 ML AMPUL.NEB. INHALATION (06:52)
--- NOTE | 2023-07-15 07:46 | PN.HOSP_ITS ---
Reason for Visit Reason for Visit: Diagnoses Non-ST elevation (NSTEMI) myocardial infarction (07/13/23) Subjective Subjective Feels better. No events. Objective Data Objective Data Vital Signs: Vital Signs Temp Pulse Resp BP Pulse Ox O2 Del Method 36.5 C L 80 17 112/68 98 Room Air 07/15/23 02:50 07/15/23 06:52 07/15/23 06:52 07/15/23 02:50 07/15/23 02:50 07/15/23 02:51 Oxygen Delivery Method Room Air Weight: 128 kg Body Mass Index (BMI) 41.6 Intake & Output: Intake and Output for Last 24 Hours 07/13/23 07/14/23 07/15/23 23:59 23:59 23:59 Intake Total 1905 / 1905 Balance 1905 / 1905 Lab / Micro Data 07/13/23 12:40 07/14/23 05:48 Radiography Diagnostic Testing: Radiology Impression Echocardiogram 07/13/23 14:44 Interpretation Summary The estimated ejection fraction is 55 %. No evidence for diastolic dysfunction. Ordering Physician: John Peters Performed By: Matthew Mackenzie RCS Physical Exam Const Constitutional Narrative: Up in chair. No acute distress and afebrile. No respiratory distress. No conversational dyspnea. Extremity Extremity Narrative: Compression stockings in place bilaterally. Assessment & Plan Assessment/Plan (1) NSTEMI, initial episode of care: PLAN: Plan NSTEMI * Suspect type II event from ventricular tachycardia. Troponins have been trending down. * Echo shows an EF 55%. Ventricular tachycardia * Patient irrigation did show ventricular tachycardia that did not specify length of the events from . On telemetry, patient is is a paced but having frequent not sustained ventricular tachycardia. * At reached out to speak with patient's EP doctor, Dr. Napier, and spoke with him on the phone. He recommends starting diltiazem 120 mg daily. Patient previous has not tolerated beta-blockers and does have history of heart block which she subsequently has a pacemaker placed. Will give the patient 120 mg of Cardizem CD daily and observe him overnight. * Plans for the patient to follow-up with Dr. Napier as outpt * Patient's heart rhythm was reviewed and on telemetry it is paced rhythm with occasional PVCs. Patient is not having the breadth of PVCs that he was having before starting the diltiazem. Patient informs me that he will be following up with Dr. Napier next week. Chronic conditions * Atrial fibrillation: Patient had pacemaker placed April 24, 2023. Anticoagulated with apixaban. * Chronic heart failure with preserved ejection fraction: Previous ports stated that the EF was 51%. Continue with torsemide and spironolactone. Continue with ARB. * Morbid obesity: BMI of 43.3 kg/m?. Complicates care and recovery. * Complete heart block: status post PPM. VTE prophylaxis: Not indicated as patient is already anticoagulated. CODE STATUS: Addressed with patient. Patient wished to be full code. . Discharge home
[2023-07-15 08:49] VITALS: BP 112/62; PULSE 90; RESP 18; TEMP 36.5; O2SAT 96
[2023-07-15] MEDS: Spironolactone 50 MG Tablet PO (09:14)
[2023-07-15] MEDS: dilTIAZem CD 120 MG Capsule PO (09:15)
[2023-07-15] MEDS: Losartan Potassium 100 MG Tablet PO (09:16)
[2023-07-15] MEDS: Oxybutynin 5 MG Tablet PO (09:16)
[2023-07-15] MEDS: Potassium Chloride Oral Tablet 10 MEQ PO (09:17)
[2023-07-15] MEDS: hydroCHLOROthiazide 25 MG Tablet PO (09:17)
[2023-07-15] MEDS: Furosemide 20 MG Tablet 5 MG PO (09:25)
[2023-07-15] MEDS: APIXABAN 5 MG TABLET PO (09:32)
--- NOTE | 2023-07-15 10:55 | DS.PCM_ITS ---
Providers Date of Admission: 07/13/23 Primary Care Physician: LEANDER Salinas Reason For Visit: NSTEMI Diagnosis Discharge Diagnosis (1) NSTEMI, initial episode of care: Status: Acute Code(s): I21.4 - Non-ST elevation (NSTEMI) myocardial infarction Plan NSTEMI * Suspect type II event from ventricular tachycardia. Troponins have been trending down. * Echo shows an EF 55%. Ventricular tachycardia * Patient irrigation did show ventricular tachycardia that did not specify length of the events from . On telemetry, patient is is a paced but having frequent not sustained ventricular tachycardia. * At reached out to speak with patient's EP doctor, Dr. Napier, and spoke with him on the phone. He recommends starting diltiazem 120 mg daily. Patient previous has not tolerated beta-blockers and does have history of heart block which she subsequently has a pacemaker placed. Will give the patient 120 mg of Cardizem CD daily and observe him overnight. * Plans for the patient to follow-up with Dr. Napier as outpt * Patient's heart rhythm was reviewed and on telemetry it is paced rhythm with occasional PVCs. Patient is not having the breadth of PVCs that he was having before starting the diltiazem. Patient informs me that he will be following up with Dr. Napier next week. Chronic conditions * Atrial fibrillation: Patient had pacemaker placed April 24, 2023. Anticoagulated with apixaban. * Chronic heart failure with preserved ejection fraction: Previous ports stated that the EF was 51%. Continue with torsemide and spironolactone. Continue with ARB. * Morbid obesity: BMI of 43.3 kg/m?. Complicates care and recovery. * Complete heart block: status post PPM. VTE prophylaxis: Not indicated as patient is already anticoagulated. CODE STATUS: Addressed with patient. Patient wished to be full code. . Discharge home Medications at Discharge Home Medications Telmisartan/Hydrochlorothiazid [Micardis Hct 80-25 Mg Tablet] 1 tab PO DAILY 03/22/19 albuterol sulfate 2.5 mg/3 mL (0.083 %) solution for nebulization 2.5 mg inhalation Q4H PRN PRN Asthma 03/22/19 albuterol sulfate 90 mcg/actuation aerosol inhaler 2 puff inhalation Q4H PRN PRN Asthma 03/22/19 apixaban 5 mg tablet 5 mg PO BID 03/22/19 diphenhydramine HCl 25 mg capsule 25 mg PO Q6H PRN PRN Allergies 03/22/19 epinephrine 0.3 mg/0.3 mL injection syringe 0.3 mg IJ Q6H PRN PRN Allergies 03/22/19 fluticasone 232 mcg-salmeterol 14 mcg/actuation breath activated powdr 2 puff IH BID 03/22/19 montelukast 10 mg tablet 10 mg PO QHS 03/22/19 oxybutynin chloride 5 mg tablet 5 mg PO BID 03/22/19 simvastatin 40 mg tablet 40 mg PO QHS 03/22/19 torsemide 5 mg tablet 5 mg PO QODAY diuretic 03/22/19 diltiazem HCl 120 mg capsule,extended release 24 hr 120 mg PO DAILY #30 caps 07/15/23 spironolactone 50 mg tablet 50 mg PO DAILY #30 tabs 07/15/23 Hospital Course Operations None Procedures 2-D Echocardiogram Summary of Care Provided Minutes Spent on Discharge: 35 Hospital Course: Patient presented after having feeling of palpitations, diaphoresis and feeling unwell. When he arrived, patient was stable with no evidence of any A-fib with RVR or any ventricular tachycardia. Troponins, however were elevated. Patient had his pacemaker interrogated that showed he did have episodes of ventricular tachycardia could not specify time nor length, however on the report. But on telemetry, patient was having very frequent PVCs. I did discuss the case with the patient's coke crane operator, Dr. Napier, who recommended diltiazem 120 mg daily. The patient was started on that yesterday and overnight he has done well. His rhythm has been paced with occasional PVCs. Patient did undergo an echocardiogram given the elevated troponins with an EF of 55%. Elevated troponins were likely due to demand ischemia from the ventricular tachycardia that he experienced. Patient was concerned that he may have had a panic attack but I told him that since he has never had panic attacks before that likely he felt the way he did because of his fast heart rates and may have felt panic due to that. Weight / BMI Weight Weight: 128 kg Body Mass Index (BMI) 41.6 ABG / Lab / Microbiology Data 07/13/23 12:40 02/27/24 05:48 Radiography Diagnostic Testing: Radiology Impression Echocardiogram 07/13/23 14:44 Interpretation Summary The estimated ejection fraction is 55 %. No evidence for diastolic dysfunction. Ordering Physician: John Peters Performed By: Matthew Mackenzie RCS D/C Instructions Discharge Diet: Low fat / Low cholesterol Meaningful Use Info Meaningful Use Diagnoses (Choose all that apply): None applicable Discharge Plan Admission Admit Date/Time: 07/13/23 14:06 Primary Reason for Your Visit: Ventricular tachycardia Attending Provider: John Peters Primary Care Provider: Francisca Dickerson NP Instructions Additional Instructions / Restrictions: You have symptoms due to likely sustained ventricular tachycardia. Symptoms due to your shortness of breath feeling hot and tired with treatment of that and you may have felt panicked but this was not a panic attack but you are likely panic due to how he felt. Your heart rate is improved with this initiation of diltiazem (also known as Cardizem). Please follow-up with Dr. Napier. Discharge Orders/Prescriptions Prescriptions: New diltiazem HCl 120 mg Capsule,Extended Release 24hr 120 mg PO DAILY Qty: 30 0RF spironolactone 50 mg Tablet 50 mg PO DAILY Qty: 30 0RF Continued albuterol sulfate 1 INHALER inhaler 2 puff inhalation Q4H PRN PRN (Reason: Asthma) albuterol sulfate 2.5 MG/3 ML solution for nebulization 2.5 mg inhalation Q4H PRN PRN (Reason: Asthma) diphenhydramine HCl 25 MG capsule 25 mg PO Q6H PRN PRN (Reason: Allergies) epinephrine 0.3 MG/0.3 ML syringe 0.3 mg IJ Q6H PRN PRN (Reason: Allergies) apixaban 5 MG tablet 5 mg PO BID simvastatin 40 MG tablet 40 mg PO QHS torsemide 5 MG tablet 5 mg PO QODAY montelukast 10 MG tablet 10 mg PO QHS oxybutynin chloride 5 MG tablet 5 mg PO BID fluticasone propion-salmeterol 1 PUFF inhaler 2 puff IH BID Telmisartan/Hydrochlorothiazid [Micardis Hct 80-25 Mg Tablet] 1 TAB tablet 1 tab PO DAILY Discontinued potassium chloride 10 MEQ capsule, extended release 10 meq PO DAILY spironolacton-hydrochlorothiaz 1 EACH tablet 25 mg PO DAILY Referrals / Follow Up: Francisca Dickerson [facility], [facility] [Primary Care Provider] - Within 2 Weeks Disposition Disposition (needs filled in before D/C Order can be placed): Home, Self Care Charges/Coding Visit Charges Inpatient E&M: 04579 Disch Hosp >30min
--- NOTE | 2023-07-15 11:25 | PHA.DC.MC.R ---
Pharmacy [facility] Service has performed discharge medication reconciliation and counseling for this patient. 1. DILTIAZEM CD 120MG PO DAILY The patient's discharge medication list was reviewed for discrepancies and discrepancies were resolved. The patient was counseled on the following discharge medications and changes in medications for homegoing were reviewed. The Reason for Use, instructions for use, and potential side effects were reviewed for all new medications. The patient's questions regarding all of their medications were answered. The patient was able to verbally demonstrate an understanding of their discharge medications. Patient counseled by student specialist, Yann. Medications at Discharge Home Medications Telmisartan/Hydrochlorothiazid [Micardis Hct 80-25 Mg Tablet] 1 tab PO DAILY 03/22/19 albuterol sulfate 2.5 mg/3 mL (0.083 %) solution for nebulization 2.5 mg inhalation Q4H PRN PRN Asthma 03/22/19 albuterol sulfate 90 mcg/actuation aerosol inhaler 2 puff inhalation Q4H PRN PRN Asthma 03/22/19 apixaban 5 mg tablet 5 mg PO BID 03/22/19 diphenhydramine HCl 25 mg capsule 25 mg PO Q6H PRN PRN Allergies 03/22/19 epinephrine 0.3 mg/0.3 mL injection syringe 0.3 mg IJ Q6H PRN PRN Allergies 03/22/19 fluticasone 232 mcg-salmeterol 14 mcg/actuation breath activated powdr 2 puff IH BID 03/22/19 montelukast 10 mg tablet 10 mg PO QHS 03/22/19 oxybutynin chloride 5 mg tablet 5 mg PO BID 03/22/19 simvastatin 40 mg tablet 40 mg PO QHS 03/22/19 torsemide 5 mg tablet 5 mg PO QODAY diuretic 03/22/19 diltiazem HCl 120 mg capsule,extended release 24 hr 120 mg PO DAILY #30 caps 07/15/23 spironolactone 50 mg tablet 50 mg PO DAILY #30 tabs 07/15/23
[2023-07-15 13:10] VITALS: BP 106/67; PULSE 92; RESP 18; TEMP 36.6; O2SAT 94
== END 2023-07-15 13:29 | disposition home or self-care (01) | DRG 281 ==
LOC: ED 13:59 → PCU 14:13
PROVIDERS: Physician Assistant; Emergency Provider Emergency Medicine; PCP Nurse Practitioner Adult Health
DX: I47.20 Ventricular tachycardia, unspecified (principal); I21.A1 Myocardial infarction type 2; I50.32 Chronic diastolic (congestive) heart failure; Z68.41 Body mass index [BMI] 40.0-44.9, adult; I11.0 Hypertensive heart disease with heart failure; I48.91 Unspecified atrial fibrillation; E66.01 Morbid (severe) obesity due to excess calories; Z79.01 Long term (current) use of anticoagulants; Z95.0 Presence of cardiac pacemaker
CPT/HCPCS: 36415; 71046; 80048; 84484; 85025; 93005; 93306; 94640; 99285; Q9957; A4216; C8929